=== PATIENT | male | born 1950 | race Caucasian/White ===

== ENCOUNTER → 2018-08-18 | Outpatient (CLI) | payer OTHER, BC ==
[~2018-08-18] MED LIST: IOPAMIDOL (ISOVUE-300) 100 ML BTL ONE
== END ==
LOC: FIMAGING 09:50
PROVIDERS: ATTEND Physician Assistant Medical
DX: N28.89 Other specified disorders of kidney and ureter (principal); N39.41 Urge incontinence
CPT/HCPCS: 74178; Q9967; 82565-PO